=== PATIENT | female | born 1930 | race Caucasian/White ===

== ENCOUNTER 2021-04-30 15:39 | Emergency (ER) | payer OTHER ==
[~2021-04-30] VITALS: Ht 157.5 cm; Wt 45.4 kg
[2021-04-30 16:27] LABS: ABSOLUTE NEUTROPHILS 2.9 thou/uL (1.4-8.2); BASOPHILS 1.4 % (0.0-2.0); EOSINOPHILS 3.1 % (0.0-3.0); HEMATOCRIT 25.4 % (37.0-47.0); LYMPHOCYTES 33.7 % (24.0-44.0); MCH 26.1 pg (26.0-34.0); MCHC 31.6 g/dL (28.0-37.0); MCV 82.4 fL (80.0-100.0); POLYS 49.8 % (36.0-66.0); RBC 3.08 mil/uL (4.20-5.00); WBC 5.8 thou/uL (4.0-11.0)
[2021-04-30 16:30] LABS: PLATELET COUNT 144 thou/uL (150-400)
[2021-04-30 16:35] LABS: CALCIUM 8.8 mg/dL (8.5-10.1); POTASSIUM 4.1 mmol/L (3.5-5.1)
[2021-04-30 16:42] LABS: ALBUMIN 2.6 g/dL (3.4-5.0); TOTAL BILIRUBIN 0.2 mg/dL (0.2-1.0); TOTAL PROTEIN 6.1 g/dL (6.4-8.2)
[2021-04-30 17:08] LABS: URINE BILIRUBIN NEGATIVE (Negative); URINE BLOOD NEGATIVE (Negative); URINE CLARITY CLEAR; URINE COLOR YELLOW; URINE GLUCOSE-RANDOM* NEGATIVE (Negative); URINE KETONES NEGATIVE (Negative); URINE LEUKOCYTES-REFLEX TRACE (Negative); URINE NITRITE-REFLEX NEGATIVE (Negative); URINE PROTEIN (DIPSTICK) NEGATIVE (Negative); URINE UROBILINOGEN 0.2 E.U./dl (0.2-1.0)
[2021-04-30 18:45] VITALS: BP 155/61
--- NOTE | 2021-05-01 07:21 | EKG ---
[place] [address] [facility] [place] [address] ELECTROCARDIOGRAM REPORT Name: CAMERON SIDDIQI Room #: [facility]#: [id number] Admission: 04/30/21 Attend Phys: Discharge: 04/30/21 Date of : [birth year] Report #: [id number] [facility] ED Test Date: 2021-04-30 Test Time: 16:52:45 Pat Name: CAMERON SIDDIQI Department: Room: Gender: F Blood Bank Specialist: DOROTA : [id number] Requested By: Pérez Bolaños Order Number: [id number] MD: Mark Nur Measurements Intervals Holt Rate: 76 P: 29 OK: 146 QRS: -23 QRSD: 99 T: 40 QT: 382 QTc: 430 Interpretive Statements Sinus rhythm Borderline left axis deviation No previous ECG available for comparison Electronically Signed On 05-01-2021 7:21:23 CDT by Mark Nur [email or web address] <ELECTRONICALLY SIGNED> By: Mark Nur MD, [facility] 05/01/21 07 51 1652 Mark Nur MD, FACC /EPI
== END 2021-04-30 19:25 ==
LOC: ER 15:39
PROVIDERS: Physician Assistant
DX: R45.1 Restlessness and agitation (principal); R45.6 Violent behavior; D64.9 Anemia, unspecified; Z88.1 Allergy status to other antibiotic agents; Z88.0 Allergy status to penicillin; Z88.8 Allergy status to other drugs, medicaments and biological substances

== ENCOUNTER 2021-04-30 16:37 | Inpatient (IN) | payer OTHER ==
[~2021-04-30] VITALS: Ht 152.4 cm; Wt 47.2 kg
[2021-04-30 20:30] VITALS: BP 155/63
--- NOTE | 2021-05-01 02:13 | NUR ---
PATIENT ARRIVED FROM [facility] ED BY STRETCHER TO [facility] UNIT WITH NURSE, CARINA FANG. SHE STATES PATIENT CAME BY AMBULANCE TO THE ED FROM [facility] ER AFTER HAVING HAD INCREASED AGITATION AND COMBATIVENESS WITH STAFF AND RESIDENTS. SHE HAD BEEN HITTING AND YELLING AT RESIDENTS AND STAFF. SHE DOES HAVE A HISTORY OF DEMENTIA WITH BEHAVIORS AND UTI'S. URINE RAN IN ED SHOWS TRACE LEUKOCYTES. PATIENT HAS MEDICAL HX OF PARKINSONS, UTI, HTN,HLD, MALIGNANT NEOPLASM OF BREAST, OSTEOPOROSIS , SYNCOPE, HX OF FALLING. PATIENT HAS OUTSIDE ORDER IN PAPERWORK TO DNR STATUS. SHE HAS MULTIPLE ALLERGIES, SEE CHART. PATIENT IS ABLE TO AMBULATE WITH UNSTEADY GAIT. SHE IS USING WALKER WHILE HERE IN THE HOSPITAL. SHE IS INDEPENDENT WITH ADL'S WITH MINIMAL ASSIST. PATIENT PRESENTS TO THE UNIT VERY VOCAL AND STATING HER WANTS AND COMPLAINTS. SHE STATES SHE IS STARVING AND NO ONE HAS GIVEN HER FOOD SINCE BREAKFAST THIS MORNING. THE ED NURSE STATES THAT SHE DID EAT SUPPER IN THE ED BUT STILL INSISTS SHE HAS NOT EATEN. PATIENT VITALS WERE RECEIVED AND WNL FOR HER. SHE HAD LUNGS CTA, HEART REGULAR, S1S2 HEARD, POSITIVE BOWEL SOUNDS X 4, NONTENDER SOFT ADBDOMEN. NO EDEMA IN EXTREMITIES. PATIENT INSISTED ON WEARING RINGS ON HER FINGERS. ONE WEDDING AND THE OTHER A ANUP RING. INVENTORY OF BELONGINGS DONE. PATIENT WEARS GLASSES. NO HEARING AIDS, OR DENTURES NOTED. PATIENT WAS GIVEN FOOD TO EAT ON THE UNIT. SHE TOOK HER HS MEDS WHOLE WITH WATER. PATIENT DOES NOT RECALL LAST BOWEL MOVEMENT. PATIENT SAT IN DINING ROOM AND ATE SNACKS. PATIENT SIGNED CONSENTS FOR TREATMENT. EDUCATION DONE ON FALL PREVENTION WITH PATIENT AND PATIENT GIVEN BLUE SOCKS WITH TREADS D/T NO YELLOW AVAILABLE IN HER SIZE. PT HAS LONG FINGERNAILS AND HAD A BANDAID AROUND 2 FINGERS. PATIENT DENIES PAIN, SI/HI/AVH. SHE IS ACCEPTING OF BEING HERE AND STATES SHE WANTS TO BE CHECKED OUT TO MAKE SURE SHE IS HEALTHY. AT BEDTIME PATIENT WAS ANXIOUS, TALKATIVE AND C/O OF STOMACH ACHE AND NAUSEA. PT REFUSED MAALOX BECAUSE SHE THOUGHT IT WOULD MAKE HER VOMIT AND SHE DID NOT WANT TO VOMIT. ZOFRAN 4MG PO GIVEN AND ORDER FOR ONE TIME DOSE OF ATIVAN 1MG PO GIVEN AT BEDTIME. PATIENT MADE COMFORTABLE IN BED. BED IN LOW POSITION AND BED ALARM IS ON. PATIENT HAS VERY LIMITED SHORT TERM MEMORY AND CAN BE ARGUMENTATIVE. PT IS RESTING AND RELAXED WITH EYES CLOSED AT THIS TIME. ROUTINE ROUNDS TO ASSESS SAFETY AND STATUS OF PATIENT.
--- NOTE | 2021-05-01 05:21 | NUR ---
PATIENT AWOKE AND WHILE IN BATHROOM HAD DIARHEA AND VOMITING X 1. PATIENT FELT BETTER AFTER CLOUD. STOOL COLLECTED FOR OCCULT BLOOD CHECK. PATIENT CLEANED UP AND CLOTHES IN WASHER. VITAL SIGNS AT THIS TIME WERE 132/70 P86 R 18 T97.0 AND PULSE OX%99. PATIENT DENIES CHEST PAIN AND NO SOB NOTED. PATIENT HELPED BACK INTO BED. HOB UP AND PATIENT RESTING. CALL PLACED TO DR BLACK. CONTINUING TO MONITOR. BED IN LOW POSITION AND BED ALARM IS ON. PATIENT WITH CLEAR HACKY COUGH STARTING.
[2021-05-01 06:46] LABS: % SATURATION 5 % (20-39); IRON 13 ug/dL (50-170); TIBC 282 ug/dL (250-450)
[2021-05-01 06:54] LABS: CHOLESTEROL 138 mg/dL (<200); HDL CHOLESTEROL 60 mg/dL (>40); LDL CHOLESTEROL 65 mg/dL (<100); TC:HDL 2.3 Ratio (Not establshd); TRIGLYCERIDE 66 mg/dL (<150); VLDL 13 mg/dL (<40)
[2021-05-01 06:57] LABS: SERUM ASSESSMENT Clear
[2021-05-01 07:09] LABS: FOLIC ACID 17.3 ng/mL (8.6-58.9)
[2021-05-01 09:22] VITALS: BP 139/76
--- NOTE | 2021-05-01 17:55 | NUR ---
ASHLEY and Dr. Ely were able to speak with the Pt's DPOA's, Arjun and Sanjana Baumann over the phone. the family was able to give a brief history on the Pt. Pt has been at [facility] for about 2 months. THe familyis looking to Place the Pt at [facility] soon. [place] in [place] to [place] and began to wonder. Pt was dx with dementia about 2 years ago. Medications were discussed and update on the Pt given. ASHLEY will continue to follow
[2021-05-01 19:30] VITALS: BP 113/83
--- NOTE | 2021-05-01 19:45 | NUR ---
0700 ASSUMED CARE OF PATIENT, PATIENT IN BED AT THAT TIME. PATIENT TO DAYROOM AMB WITH WALKER WITH STANDBY ASSIST. PATIENT CURSING AND YELLING STATING "I JUST WANT TO SLEEP". PATIENT UPSET DUE TO GETTING OUT OF BED. MEDICATION TAKEN WHOLE WITHOUT DIFFICULTY. PATIENT NOT PRESENT IN GROUP. PATIENT TO BED, LS CLEAR, BS ACTIVE, C/O CHEST PAIN POINTING TO RIGHT BREAST AREA STATING "IT A ACHING PAIN. REFUSES PAIN MED AT THAT TIME. PATIENT WORKS WITH PT TODAY. TYLENOL 650MG PO GIVEN FOR PAIN TO RIGHT CHEST AREA RATING A 5 ON NUMERIC PAIN SCALE. PATIENT OUT IN DAYROOM SITTING IN CHAIR WATCHING TV.
[2021-05-01 23:06] LABS: GLYCOHEMOGLOBIN (HGB A1C) 5.6 % (4.8-5.6)
--- NOTE | 2021-05-02 03:12 | NUR ---
ASSUMED CARE OF PT AT 1900. PT SITTING IN CHAIR IN DAYROOM. SHE APPEARS DISHEVELED AND IS DRESSED APPROPRAITE. SHE PREESENTS WITH ALABILE AFFECT AND DESCRIBES HER MOOD "WHO THE FUCK KNOWS. STOP ASKING ME STUPID QUESTIONS". SHE IS SEMI COOPERATIVE WITH HER ASSESSMENT. SHE IS STANDOFFISH. SHE DOES DENY ANY THOUGHTS OF SELF HARM OR HARMING OTHERS. SHE DENIES ANY AH/VH. SHE DOES REPORT SOME ANXIETY AND DEPRESSION BUT REFUSED TO QUANTIFY IT. HER PHYSICAL ASSESMENT WAS NEGATIVE. ABD SOFT, BOWEL SOUNDS ACTIVE, LUNGS CLEAR, AND SHE DENIED ANY PAIN. HER VITAL SIGNS WERE WITHIN NORMAL LIMITS. SHE IS ALERT AND ORIENTED X 3. SHE AMBULATES WITH A WALKER AND HAS A SHUFFLING GAIT. SHE IS MED COMPLIANT AND TAKES THEM WHOLE WITHOUT DIFFICULTY. PT AMBULATED TO HER ROOM AROUND 2100 AND HAS BEEN RESTING. WILL CONTINUE TO MONITOR AND FOLLOW PLAN OF CARE. SHE CONTINUES TO BE ON 12 MINUTE CHECKS PER PROTOCOL.
--- NOTE | 2021-05-02 08:27 | NUR ---
Pt is a new admit to [facility]. Visited in dining room this A.M. during morning meal. Pt eating well at time of visit and 100% intake documented last 2 meals. No c/o chewing/swallowing difficulties at this time. Pt is low nutrition risk.
--- NOTE | 2021-05-02 09:28 | NUR ---
PATIENT REFUSING TO GET OUT OF BED THIS MORNING, BUT DID GET UP WITH ENCOURAGMENT FROM MULTIPLE STAFF. PATIENT IS ALERT, AND ORIENTED X 2-3, ABLE TO VOICE NEED. PATIENT IS LOUD, IRRITABLE, C/O GENERALIZED PAIN TO 6/10, PRN TYLENOL GIVEN, WITH PARTIAL EFFECT. PAIN DECREASED TO 3/10 UPON REASSESSMENT. PATIENT TOOK ALL MEDICATION WHOLE WITH LOTS OF ENCOURAGMENT FROM THIS PRODUCT SCIENTIST. PATIENT IS EATING MEALS, AND DRINKING FLUID WELL. AFFECT IS FLAT/BLUNTED/SAD, MOOD IS IRRITABLE/HOSTILE. PATIENT DENIES SUICIDAL/HOMICIDAL IDEATION, CHOOSE NOT TO RESPOND TO FURTHER ASSESSMENT QUESTIONS. NO SIGN OF ACUTE DISTRESS NOTED AT THIS TIME, WILL CONTINUE TO REDIRECT, AND MONITOR FOR SAFETY.
[2021-05-02 10:27] VITALS: BP 135/67
[2021-05-02 20:04] VITALS: BP 134/85
[2021-05-02 20:30] VITALS: BP 134/85
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
[2021-05-03 08:38] VITALS: BP 133/62
--- NOTE | 2021-05-03 12:28 | NUR ---
Assumed pt care at 0700. pt was alert and oriented to self. Assessments completed vss. Pt took her meds whole, no difficulty noted. Ambulates with a walker. Pt was irritable, rude, defensive and verbally abusive during assessments and care. Pt stated assessment question were dumb. Pt Denies si/hi. Pt c/o pain, TYLEnol offered to pt, pt refused. Noted a callus on pt right pinky toe (small toe) foot. DR vuong Notified. leather scrubber Consult ordered AND CALLED AT 1302. At this time pt is in the day room. Will continue to monitor.
[2021-05-03 21:30] VITALS: BP 133/62
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
[2021-05-04 09:50] VITALS: BP 125/90
--- NOTE | 2021-05-04 10:53 | NUR ---
SITTING IN DAYROOM EATING BREAKFAST WITH PEERS ON INITIAL ASSESSMENT THIS AM. DYSPHORIC MOOD AND ABRUPT RESPONSES INITIALLY BUT AFTER CONVERSING FOR AWHILE DI BECOME MORE VERBAL AND SPONTANEOUS. DENIES C/O PAIN/DISCOMFORT.CONVERSES WITH NURSING STAFF IN COHERENT GOAL DIRECTED MANNER. HAS NOT BEEN NOTED TO BE ATTEMPTING TO GET UP ON OWN-COMPLIENT WITH MEDICATIONS-ORIENTED TO PERSON/PLACE-NO TO DATE. APPETTIE GOOD.
--- NOTE | 2021-05-04 17:20 | NUR ---
ASHLEY spoke with Tanika at [facility]. Tanika confirmed recieving the faxed clinical notes on the Pt. Tanika stated they could provide transportation on the Pt. Tanika requested ASHLEY to call Friday for transportation time. D/C set for 05/07/2021 @ 1330pm. [facility] will transport
[2021-05-04 21:24] VITALS: BP 129/65
--- NOTE | 2021-05-04 22:38 | NUR ---
UPON START OF THE SHIFT PT WAS NOTED ANXIOUS AND FORGETFUL AT THE NURSES STATION ON SEVERAL OCCASIONS IN A SHORT SPAN OF TIME TO REQUEST THE SAME QUESTION ABOUT HAVING A TV IN HER ROOM. PT IS A/O X1-2 AND IS REFUSING TO USE WALKER. C/O HEADACHE. PRN TYLENOL GIVEN DIRECTED. STATED SHE WANTED TO GO TO BED EARLY. MEDICATIONS GIVEN PER MAR. SINCE PT HAS BEEN LYING IN BED WITH BED ALARM ON. VSS. AFEBRILE. CONTINENT OF BOWEL AND BLADDER. WILL CONTINUE TO MONITOR THROUGH OUT THE NOC.
[2021-05-05 09:00] VITALS: BP 129/44
[2021-05-05 09:16] VITALS: BP 129/44
--- NOTE | 2021-05-05 12:31 | NUR ---
Assumed pt care at 0700. pt was in her room resting. Assessments completed, vss. Active bowel sound. Took meds whole, no difficulty noted. AMbulates with a walker. Denies si/hi. At this time there is no c/o pain. pt is co-operative with care. upon assessments pt was irritable, verbally agressive. pt is redirectable. pt skipped breakfast. Able to make needs known to staff. No sign of acute distress noted upon assessment. Meds administered as ordered. AT this time pt is in the day room watching TV. Will continue to Monitor pt.
[2021-05-05 19:33] VITALS: BP 115/74
[2021-05-06 01:23] VITALS: BP 115/74
--- NOTE | 2021-05-06 01:31 | NUR ---
05/05/21- assumed care from day shift nurse at 1900, Pt is alert to self, disoriented to time and place. Pt will get animated at times and gets fixated on her room, pt was really fixated on where her clothes were, she would not accept any explanation about the policy. Pt eventually went to bed about 2200, and has been sleep. Frequent checks per [facility] protocol. Pt slept intermittently throughout the night.
[2021-05-06 07:43] VITALS: BP 114/56
[2021-05-06 09:09] VITALS: BP 114/56
--- NOTE | 2021-05-06 10:17 | NUR ---
PATIENT CARE ASSUMED AT 0700 - COOPERATIVE AND DIRECTABLE. WAS IN BED SLEEPING WHEN ARRIVING ON UNIT - AWOKE FOR BREAKFAST. COMPLIANT WITH MEDICATIONS - APPETITE GOOD - NO PAIN WHEN ASSESSED. MANUVERS AROUND WITH WALKER. LAID DOWN AFTER GROUP AND RESTING. STATED WAS COLD - VITALS WERE STABLE THIS MORNING.
[2021-05-06 19:18] VITALS: BP 127/58
--- NOTE | 2021-05-06 23:55 | NUR ---
05-06-21 CARE TRANSFERRED 1899 OBSERVED PT WALKING IN HALLWAY, SHUFFLING STEADY GAIT. LATER PT AAOX1, VSS, RR EVEN AND NONLABORED ON RA, PT DENIES SI/HI AND PAIN. PT PRESENTS PLESANTLY CONFUSED, CALM AND COOPERATIVE AND EASILY REDIRECTED. PT STATED "I FORGET THINGS ALL THE TIME NOW" LATER PT REPORTED BODY ACHES AND SCORED AT A 5 ON 0-10 SCALE. UPON REASSESSMENT PT SCORED AT 2 ON 0-10 SCALE. ZERO S/S OF ACUTE DISTRESS NOTED, PT WILL CONTINUE TO BE MONITOR PER [facility] PROTOCOL.
[2021-05-07 05:36] LABS: HEMATOCRIT 23.5 % (37.0-47.0); HEMOGLOBIN 7.5 gm/dL (12.0-15.0); MCH 25.9 pg (26.0-34.0); RBC 2.9 mil/uL (4.20-5.00); RDW 16.3 % (10.5-14.5); WBC 3.9 thou/uL (4.0-11.0)
[2021-05-07 05:49] LABS: CALCIUM 8.6 mg/dL (8.5-10.1); CREATININE 1.3 mg/dL (0.6-1.0); POTASSIUM 3.8 mmol/L (3.5-5.1)
[2021-05-07 09:27] VITALS: BP 138/63
[2021-05-07] MEDS ORDERED: FERREX 150 PLU1 EAC1 PO (10:58)
[2021-05-07] MEDS ORDERED: SEROQUEL 25 MG25 M1 PO (11:01)
[2021-05-07] MEDS ORDERED: PROTONIX40 M2 PO (11:02)
[2021-05-07] MEDS ORDERED: MELATONIN5 M1 PO (11:03)
--- NOTE | 2021-05-07 13:04 | NUR ---
Discharge documents were faxed to the [facility], at [facility]. A copy of the fax cover sheet and confirmation was placed in the file.
--- NOTE | 2021-05-07 14:19 | NUR ---
Assumed pt care at 0700. pt was in her room resting. oriented to person. Assessments completed, vss. Active bowel sound. Pt took meds whole, no difficulty noted. Ambulates with a walker. Calm and co-operative with care. No sign of acute distress noted upon assessments. Make needs known to staff. Denies si/hi, denies pain at this time. Will continue to monitor.
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
== END 2021-05-07 15:00 | DRG 57 ==
LOC: SBH 16:37
PROVIDERS: Internal Medicine; ADMIT Psychiatry & Neurology Psychiatry; ATTEND Psychiatry & Neurology Psychiatry
DX: G30.9 Alzheimer's disease, unspecified (principal); F02.81 Dementia in other diseases classified elsewhere, unspecified severity, with behavioral disturbance; E44.0 Moderate protein-calorie malnutrition; F01.51 Vascular dementia, unspecified severity, with behavioral disturbance; I10 Essential (primary) hypertension; E78.5 Hyperlipidemia, unspecified; M81.0 Age-related osteoporosis without current pathological fracture; K21.9 Gastro-esophageal reflux disease without esophagitis; G89.4 Chronic pain syndrome; G20 Parkinson's disease; D64.9 Anemia, unspecified; D69.6 Thrombocytopenia, unspecified; Z66 Do not resuscitate; Z20.822 Contact with and (suspected) exposure to COVID-19; Z90.10 Acquired absence of unspecified breast and nipple; Z88.1 Allergy status to other antibiotic agents; Z90.710 Acquired absence of both cervix and uterus; Z88.8 Allergy status to other drugs, medicaments and biological substances; Z68.20 Body mass index [BMI] 20.0-20.9, adult
CPT/HCPCS: 10880